=== PATIENT | male | born 1985 | race Caucasian/White ===

== ENCOUNTER 2019-11-04 16:10 | Observation (INO) ==
[2019-11-04] MEDS ORDERED: VANCOMYCIN HCL 2,000 MG in SODIUM CHLORIDE 0.9% 500 ML IV STA (16:57)
[2019-11-04] MEDS ORDERED: VANCOMYCIN CONSULT ACTIVE PRN ×2 (17:02→21:23)
[2019-11-04 17:36] LABS: Basophils # (auto) 0.04 K/uL (0-0.2); Basophils % (auto) 0.4 %; Eosinophils # (auto) 0.13 K/uL (0-0.5); Eosinophils % (auto) 1.2 %; Hematocrit (blood only) 36.5 % (42-52); Hemoglobin 12.1 g/dL (14.0-18.0); Immature Granulocytes # (auto) 0.02 K/uL (0.00-0.02); Immature Granulocytes % (auto) 0.2 %; Lymphocytes # (auto) 1.95 K/uL (1.2-3.4); Lymphocytes % (auto) 17.6 %; Mean Corpuscular Hemoglobin 29.2 pg (25-34); Mean Corpuscular Hgb Conc 33.2 g/dL (32-36); Mean Corpuscular Volume 88.2 fL (80-100); Monocytes # (auto) 0.55 K/uL (0.11-0.59); Neutrophils # (auto) 8.37 K/uL (1.4-6.5); Neutrophils % (auto) 75.6 %; Platelet Count 361 K/uL (130-400); RDW Coefficient of Variation 13.6 % (11.5-14.5); RDW Standard Deviation 43.5 fL (36.4-46.3); Red Blood Count 4.14 M/uL (4.7-6.1); White Blood Count 11.06 K/uL (4.8-10.8)
[2019-11-04 17:52] LABS: INR 1.1 (0.9-1.1); Partial Thromboplastin Ratio 1.1; Partial Thromboplastin Time 29.5 Seconds (21.0-31.0); Prothrombin Time 11.5 Seconds (9.0-12.0)
[2019-11-04 17:53] LABS: Alanine Aminotransferase 15 U/L (12-78); Albumin Level 3.8 gm/dl (3.4-5.0); Aspartate Aminotransferase 16 U/L (15-37); BUN Creatinine Ratio 13.7 (10-20); Blood Urea Nitrogen 13 mg/dl (7-18); Calcium 9.1 mg/dl (8.5-10.1); Carbon Dioxide 27 mmol/L (21-32); Chloride 106 mmol/L (98-107); Est GFR (African American) 122.3; Est GFR (Non-African American) 105.5; Glucose 96 mg/dl (70-99); Sodium 139 mmol/L (136-145)
--- NOTE | 2019-11-04 17:54 | XRay Report ---
XR chest 1V portable HISTORY: SEPSIS COMPARISON: Chest 10/05/2019. FINDINGS: Cardiac silhouette is normal in size. Bilateral hilar prominence remains unchanged. Stable blunting of the left lateral costophrenic sulcus. This could be chronic or due to a trace left pleura l effusion. No new focal lung consolidations to suggest pneumonia. No evidence for pulmonary edema. S table diffuse interstitial thickening. This may be technical. IMPRESSION: Stable blunting of the left lateral costophrenic sulcus. This could be chronic or due to a trace left pleural effusion. Otherwise, no acute process within the chest. ACT 112: Negative or not required by law. Electronically signed by: Bam Hannah M.D. 11/04/2019 5:53 PM
[2019-11-04 17:58] LABS: Albumin Globulin Ratio 0.7 (0.9-2); Alkaline Phosphatase 90 U/L (45-117); Bilirubin,Total 0.6 mg/dl (0.2-1); Globulin 5.1 gm/dl (2.5-4.0); Total Protein 8.9 gm/dl (6.4-8.2); Troponin I < 0.015 ng/ml (0-0.045)
[2019-11-04] MEDS ORDERED: cefTRIAXone SODIUM 2,000 MG/70 ML BAG IV STA (18:03)
--- NOTE | 2019-11-04 18:38 | Emergency Department Note ---
History of Present Illness General Chief complaint: Abnormal Labs/Diagnostic Testing Stated complaint: ABNORMAL LABS Time Seen by Provider: 11/04/19 16:45 Source: patient Mode of arrival: ambulatory Limitations: no limitations History of Present Illness Provider complaint: Endocarditis This is a 34-year-old male who presents to the ED with a chief complaint of endocarditis. The patient states that he was at [facility] in [place] where he was found to have endocarditis. The patient states that he also had vegetations on his heart valves and septic emboli to his brain. He was placed on antibiotics including Zosyn and vancomycin at that facility and decided to sign himself out AGAINST MEDICAL ADVICE to come here to be admitted. He checked out of the hospital on the and he arrived here today, the . The patient states that his symptoms were found because he had some seizure-like activity about a month ago. He also states that in either August or September he had elevated cardiac enzymes. The patient does report a history of IV drug abuse but has been clean for 2 or 3 years. He does have poor dentition. Patient has no specific complaints at this time. Past Med/Surg History Medical History No pertinent past medical history Surgical History No pertinent past surgical history Social History Smoking Status: Current every day smoker Hx Alcohol Use: Yes Hx Substance Use: Yes (Prior IV drug abuser.) Preferred Language: Samoan Communication Ability: Effective Feels Safe at Home: Yes Review of Systems A total of 10 systems reviewed and were otherwise negative Physical Exam Vital Signs Vital Signs - 24 hr 11/04/19 16:36 11/04/19 17:33 11/04/19 17:48 Temperature 37.3 C Temperature Source Oral Pulse Rate 89 89 80 Pulse Rate from SpO2 Sensor 88 81 Respiratory Rate 18 12 16 Blood Pressure 121/74 118/69 Blood Pressure Mean 89 72 Pulse Oximetry 98 96 97 Oxygen Delivery Method Room Air Sepsis Recent Fever Within 48 Hours No Sepsis New/Unexplained Change in Mental Status No Sepsis Action Taken by Nursing No Action Required 11/04/19 18:00 11/04/19 18:01 Temperature Temperature Source Pulse Rate 90 84 Pulse Rate from SpO2 Sensor 89 84 Respiratory Rate 15 21 Blood Pressure 120/66 Blood Pressure Mean 83 Pulse Oximetry 95 97 Oxygen Delivery Method Sepsis Recent Fever Within 48 Hours Sepsis New/Unexplained Change in Mental Status Sepsis Action Taken by Nursing CONSTITUTIONAL/VITAL SIGNS: Reviewed / noted above. GENERAL: Non-toxic in appearance. INTEGUMENTARY: Warm, dry, and Wilkinson. HEAD: Normocephalic. EYES: without scleral icterus or trauma. ENT/OROPHARYNX: clear and moist. LYMPHADENOPATHY/NECK: Is supple without lymphadenopathy or meningismus. RESPIRATORY: Lungs clear and equal. CARDIOVASCULAR: Regular rate and rhythm. Holosystolic ejection murmur. GI/ABDOMEN: Soft and nontender. No organomegaly or pulsatile mass. No rebound or guarding. Normal bowel sounds. EXTREMITIES: Warm and well perfused. BACK: No CVA tenderness. NEUROLOGICAL: Intact without focal deficits. PSYCHIATRIC: normal affect. MUSCULOSKELETAL: Normally developed with good muscle tone. TRIAGE NURSING DOCUMENTATION REVIEWED. Course Administered Medications Vancomycin HCl 2,000 mg/ (Sodium Chloride) 540 mls @ 200 mls/hr IV NOW STA Stop: 11/04/19 19:38 Last Infusion: 11/04/19 18:11 Dose: 0 mls/hr Documented by: [id number] Admin: 11/04/19 17:26 Dose: 200 mls/hr Documented by: [id number] Discontinued Medications Ceftriaxone Sodium (Rocephin) 2,000 mg in 70 mls @ 140 mls/hr IV NOW STA Stop: 11/04/19 18:32 Last Admin: 11/04/19 18:17 Dose: 140 mls/hr Documented by: [id number] Medical Decision Making Differential Diagnosis Differential includes acute coronary syndrome, myocardial infarction, CVA, TIA, anemia, infection, pneumonia, UTI, pyelonephritis, poor nutrition, dehydration, electrolyte disturbance,hypoglycemia. Medical Records Attestation: I reviewed the patient's medical records. Home Medications Current Medication List: was personally reviewed by me Laboratory Data Attestation: I reviewed the patient's lab results. Result diagrams: 11/04/19 17:18 11/04/19 17:18 Lab Results 11/04/19 11/04/19 11/04/19 Range/Units 17:18 17:18 17:18 WBC 11.06 H (4.8-10.8) K/uL RBC 4.14 L (4.7-6.1) M/uL Hgb 12.1 L (14.0-18.0) g/dL Hct 36.5 L (42-52) % MCV 88.2 (80-100) fL MCH 29.2 (25-34) pg MCHC 33.2 (32-36) g/dL RDW Std Deviation 43.5 (36.4-46.3) fL RDW Coeff of Keren 13.6 (11.5-14.5) % Plt Count 361 (130-400) K/uL MPV 10.0 (7.4-10.4) fL Immature Gran % (Auto) 0.2 % Neut % (Auto) 75.6 % Lymph % (Auto) 17.6 % Daviess % (Auto) 5.0 % Eos % (Auto) 1.2 % Baso % (Auto) 0.4 % Neut # (Auto) 8.37 H (1.4-6.5) K/uL Lymph # (Auto) 1.95 (1.2-3.4) K/uL Daviess # (Auto) 0.55 (0.11-0.59) K/uL Eos # (Auto) 0.13 (0-0.5) K/uL Baso # (Auto) 0.04 (0-0.2) K/uL Immature Gran # (Auto) 0.02 (0.00-0.02) K/uL PT 11.5 (9.0-12.0) Seconds INR 1.1 (0.9-1.1) APTT 29.5 (21.0-31.0) Seconds PTT Ratio 1.1 Sodium 139 (136-145) mmol/L Potassium 4.0 (3.5-5.1) mmol/L Chloride 106 (98-107) mmol/L Carbon Dioxide 27 (21-32) mmol/L Anion Gap 6.0 (3-11) BUN 13 (7-18) mg/dl Creatinine 0.95 (0.6-1.4) mg/dl Est Cr Clr Drug Dosing 108.0 ml/min Est GFR ( Amer) 122.3 Est GFR (Non-Af Amer) 105.5 BUN/Creatinine Ratio 13.7 (10-20) Glucose 96 (70-99) mg/dl Lactate (0.4-2.0) mmol/L Calcium 9.1 (8.5-10.1) mg/dl Magnesium 2.0 (1.8-2.4) mg/dl Total Bilirubin 0.6 (0.2-1) mg/dl AST 16 (15-37) U/L ALT 15 (12-78) U/L Alkaline Phosphatase 90 (45-117) U/L Troponin I < 0.015 (0-0.045) ng/ml Total Protein 8.9 H (6.4-8.2) gm/dl Albumin 3.8 (3.4-5.0) gm/dl Globulin 5.1 H (2.5-4.0) gm/dl Albumin/Globulin Ratio 0.7 L (0.9-2) 11/04/19 Range/Units 17:18 WBC (4.8-10.8) K/uL RBC (4.7-6.1) M/uL Hgb (14.0-18.0) g/dL Hct (42-52) % MCV (80-100) fL MCH (25-34) pg MCHC (32-36) g/dL RDW Std Deviation (36.4-46.3) fL RDW Coeff of Keren (11.5-14.5) % Plt Count (130-400) K/uL MPV (7.4-10.4) fL Immature Gran % (Auto) % Neut % (Auto) % Lymph % (Auto) % Daviess % (Auto) % Eos % (Auto) % Baso % (Auto) % Neut # (Auto) (1.4-6.5) K/uL Lymph # (Auto) (1.2-3.4) K/uL Daviess # (Auto) (0.11-0.59) K/uL Eos # (Auto) (0-0.5) K/uL Baso # (Auto) (0-0.2) K/uL Immature Gran # (Auto) (0.00-0.02) K/uL PT (9.0-12.0) Seconds INR (0.9-1.1) APTT (21.0-31.0) Seconds PTT Ratio Sodium (136-145) mmol/L Potassium (3.5-5.1) mmol/L Chloride (98-107) mmol/L Carbon Dioxide (21-32) mmol/L Anion Gap (3-11) BUN (7-18) mg/dl Creatinine (0.6-1.4) mg/dl Est Cr Clr Drug Dosing ml/min Est GFR ( Amer) Est GFR (Non-Af Amer) BUN/Creatinine Ratio (10-20) Glucose (70-99) mg/dl Lactate 1.2 (0.4-2.0) mmol/L Calcium (8.5-10.1) mg/dl Magnesium (1.8-2.4) mg/dl Total Bilirubin (0.2-1) mg/dl AST (15-37) U/L ALT (12-78) U/L Alkaline Phosphatase (45-117) U/L Troponin I (0-0.045) ng/ml Total Protein (6.4-8.2) gm/dl Albumin (3.4-5.0) gm/dl Globulin (2.5-4.0) gm/dl Albumin/Globulin Ratio (0.9-2) Imaging Data Radiologist's Impression: Chest x-ray: IMPRESSION: Stable blunting of the left lateral costophrenic sulcus. This could be chronic or due to a trace left pleural effusion. Otherwise, no acute process within the chest. ECG Data Attestation: I personally reviewed and interpreted this ECG as follows: Indication: + other (Heart murmur) Rate (beats per minute): 87 Rhythm: + normal sinus ECG Intervals/blocks: + Normal QT-c ECG ST segments: no ST elevation ECG Findings: no PVCs MDM Narrative Patient presents to the emergency department after signing out of [facility] in [place] with endocarditis. He states that he came to be admitted to the hospital here for IV antibiotics. Further details listed above. He did come with some paperwork that was sent by his PCP that shows that he has vegetations in the valves of the heart and also the patient has septic emboli to his brain. The patient CBC and chemistry panel here was unremarkable. His troponin was negative. Chest x-ray reveals a left pleural effusion but otherwise no acute disease. EKG shows normal sinus rhythm. The patient was started on IV vancomycin and IV Rocephin he was seen by the hospitalist for further evaluation and care. Impression & Plan Endocarditis, Cerebral septic emboli Discharge Plan Visit Data Chief Complaint: Abnormal Labs/Diagnostic Testing Stated Complaint: ABNORMAL LABS ED Provider: El Starkey Discharge Problem: Endocarditis, Cerebral septic emboli Patient Disposition: Being Evaluated by Hospitalist Forms Stand Alone Forms: [facility] Referrals Referrals: Familia Gaston DO [Primary Care Provider] -
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
[2019-11-04] MEDS ORDERED: ACETAMINOPHEN 325 MG TAB PO PRN (21:23)
[2019-11-04] MEDS ORDERED: ONDANSETRON INJ 2 MG/ML 2 ML VIAL IV PRN (21:23)
[2019-11-04] MEDS ORDERED: POLYETHYLENE (MIRALAX) 17 GM PACK PO PRN (21:23)
[2019-11-04] MEDS: levETIRAcetam 500 MG in 0.9 % SODIUM CHLORIDE 100 ML IV SCH (22:09)
--- NOTE | 2019-11-04 22:37 | Billing Data ---
Date of Service November 04, 2019 Coding Level of Care Code 77367 Initial Inpt Care Lvl 3
[2019-11-04] MEDS: buprenorphine HCL 2 MG SUBL SL SCH (23:27)
[2019-11-04] MEDS: ENOXAPARIN INJ 40 MG/0.4 ML SYR SQ SCH (23:28)
[2019-11-05] MEDS: VANCOMYCIN HCL 1,250 MG in SODIUM CHLORIDE 0.9% 250 ML IV SCH ×2 (04:30→12:15)
[2019-11-05] MEDS: cefTRIAXone SODIUM 2,000 MG in DEXTROSE 5% 50 ML IV SCH ×2 (06:09→18:04)
--- NOTE | 2019-11-05 08:23 | Pharmacy Report ---
Pharmacy Abx Initial Consult - Date of Service November 05, 2019 - Pharmacy Dosing Scope Date of Consult: 11/04/19 Consultation requested by: Dr. Agrawal Pharmacy is consulted to initiate Vancomycin IV dosing therapy, order appropriate labs and adjust drug dose/frequency. - Subjective The patient is a 34 year old M admitted on 11/04/19 20:02. - Objective Height: 5 ft 9 in Weight: 68.9 kg Vital Signs (Past 12hrs): Vital Signs Temp Pulse Pulse Resp BP BP BP 11/05/19 07:22 36.5 C 66 16 98/55 L 11/05/19 03:50 36.6 C 69 16 91/51 L 11/04/19 23:59 89 11/04/19 23:06 36.6 C 90 16 112/65 11/04/19 22:39 36.8 C 82 20 104/60 11/04/19 21:37 87 11/04/19 20:31 84 19 11/04/19 20:30 90 12 111/63 Pulse Ox 11/05/19 07:22 95 11/05/19 03:50 95 11/04/19 23:59 11/04/19 23:06 97 11/04/19 22:39 97 11/04/19 21:37 11/04/19 20:31 97 11/04/19 20:30 97 Lab Results (24hrs): Laboratory Tests (24 Hours) 11/05/19 11/04/19 11/04/19 01:46 17:20 17:18 WBC Neut # (Auto) ESR 67 H Creatinine Est Cr Clr Drug Dosing C-Reactive Protein 1.13 H Random Vancomycin 14.3 11/04/19 11/04/19 17:18 17:18 WBC 11.06 H Neut # (Auto) 8.37 H ESR Creatinine 0.95 Est Cr Clr Drug Dosing 108.0 C-Reactive Protein Random Vancomycin Micro Results: 11/04/19 17:20 Aerobic Blood Culture - Pending Blood Anaerobic Blood Culture - Pending 11/04/19 17:18 Aerobic Blood Culture - Pending Blood Anaerobic Blood Culture - Pending Patient's blood culture results faxed from [facility] showing strep Mitis sensitive to vancomycin, intermediate to penicillin, sensitive to ceftriaxone and sensitive to levofloxacin. - Risk Factors for Resistance * IV Drug user * Antimicrobial use within the last 90 days Vanco/CTX ~[address] [facility] for endocarditis (left AMA) - Assessment & Plan Assessment 34 year old M initiated on IV Vanco + CTX for endocarditis. ID consulted - [email or web address] clayton for their recs re: de-escalation * Patient's blood culture results faxed from [facility] showing strep Mitis sensitive to vancomycin, intermediate to penicillin, sensitive to ceftriaxone and sensitive to levofloxacin. Plan VANCOMYCIN + CTX for treatment of endocarditis Vancomycin IV * Patient meets criteria for vancomycin AUC dosing nomogram * AUC/CARLITO is the preferred PK/PD target for vancomycin * Target AUC/CARLITO = 400-600 * AUC guided dosing is effective and associated with decreased risk of nephrotoxicity * Will check a trough level to ensure adequate dosing with severe infection * 11/06/19 @ 0300 Ceftriaxone * NOT a pharmacy consult - but dosing is appropriate for endocarditis * Continue CTX 2,000mg IV Q12hrs Pharmacy will continue to follow and will adjust dose/frequency as necessary. Thank you.
[2019-11-05] MEDS: buprenorphine HCL 2 MG SUBL SL SCH ×2 (09:01→21:06)
[2019-11-05] MEDS: levETIRAcetam 500 MG in 0.9 % SODIUM CHLORIDE 100 ML IV SCH ×2 (09:33→21:06)
--- NOTE | 2019-11-05 10:24 | Neurology Consultation ---
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 Patient had presented with a probable seizure 2-1/2 months ago. He is neurologically intact and currently receiving antimicrobial therapy. He is currently refusing additional neurological testing including an up-to-date brain MRI and EEG. At this point, I would like him to continue with Keppra 500 mg twice daily. This medication can be changed to p.o. at time of discharge. Would plan on obtaining a follow-up outpatient brain MRI in 1 month to ensure improvement/resolution. EEG could be completed as an outpatient. History of Present Illness Reason for Consultation: Infective endocarditis, seizure, brain emboli Requesting Physician: Jonathan Agrawal MD Attending Physician: Autumn Craig MD History of Present Illness The patient is a 34-year-old male who presented to the emergency department yesterday for management of infective endocarditis. He had recently left [facility] so he could be treated closer to home. His present illness came to medical attention after a seizure that occurred approximately 2-1/2 months ago characterized by posturing of the right upper limb and head and unresponsiveness lasting less than a minute. His primary care physician ordered a brain MRI which was completed at [facility] on October 25, 2019 and revealed an enhancing lesion within the right temporal right temporoparietal region with associated vasogenic edema. There were several additional foci of acute ischemic change within the left parietal convexity. The imaging findings were felt to be potentially consistent with neoplasm at that time which is why he was referred to [facility] for neurosurgical care. However, he was ultimately diagnosed with infective endocarditis with vegetations on the mitral valve. The above imaging findings are felt to be most likely consistent with septic emboli in the context of endocarditis. Past medical history is notable for intravenous drug abuse as well as very poor dentition. He is currently receiving antimicrobial therapy. Consultations with cardiology and infectious diseases are pending. He underwent a repeat echocardiogram this morning. He has not had any further seizure-like episodes since the event that occurred 2-1/2 months ago. He denies headache, focal weakness, or other neurological symptoms at this point in time. He is currently refusing a repeat brain MRI or EEG. He indicates that he just wants to get his endocarditis treated with antibiotics and is not interested in additional neurological testing at this time. I had discussed his case with Dr. Agrawal last night and recommended starting Keppra for seizure prophylaxis in light of his history. Allergies Allergy/AdvReac Type Severity Reaction Status Date / Time naloxone Allergy Severe Hives,dizziness Verified 11/04/19 19:04 and throat swelling Home Medications Home Medications Medication Instructions Recorded Confirmed Type buprenorphine HCl [Subutex] 4 mg SUBLINGUAL BID 11/04/19 11/04/19 History Patient History Medical History No pertinent past medical history Surgical History No pertinent past surgical history Social History Smoking Status: Current every day smoker Cigarettes Per Day: 20; Do You Dip or Chew Tobacco: No; Tobacco Cessation Education Requested by Patient: No Hx Alcohol Use: No Hx Substance Use: Yes Last Used Substance: Unknown Preferred Language: Croatian Communication Ability: Effective Filter Operator Required: No Beliefs That Will Affect Care: None Current Living Situation: Spouse Other Information That Helps Us Care for You: No Feels Safe at Home: Yes Safety Concerns: Feels Safe At This Time Review of Systems Constitutional: + chills and + sweats; no fever Eyes: no blind spots and no diplopia Ear, Nose, Mouth, Throat: no hearing loss Respiratory: no cough and no dyspnea Cardiovascular: no chest pain and no palpitations Gastrointestinal: no nausea and no vomiting Genitourinary: no dysuria Musculoskeletal: no back pain and no neck pain Integumentary: no rash and no lesions Neurologic: as per Subjective / HPI and + seizure-like activity; no gait abnormality, no localized weakness, no loss of sensation, no syncope, no headache(s), no confusion and no memory loss Psychiatric: no depression and no anxiety Hematologic / Lymphatic: no easy bleeding and no easy bruising Exam (Neuro) Constitutional: well developed and well nourished; no acute distress Eyes: normal visual mcdonough by confrontation, PERRL, normal accommodation and EOM intact bilaterally; no fundoscopic abnormality, no nystagmus and no papilledema Cardiovascular: Vessels: normal carotid upstroke; no carotid bruit Neurologic: Oriented to:: Person, Place and Time Memory: Short Term Intact and Remote Intact Attention: Span Intact and Concentration Intact Language: Naming Objects and Repeating Phrases Speech Fluency: negative Dysarthria Speech Aphasia: negative Aphasia Fund of Knowledge: Current Events, Past History and Vocabulary Cranial Nerves: Normal II (Visual mcdonough full to confrontation, visual acuity normal), III, IV, (Pupils equal round reactive to light and accommodation, eye movements normal), V (Facial sensation intact), VII (There is no facial droop or weakness), VIII (Hearing intact), IX, X (Palate elevates to midline), XI (Shoulder shrug intact) and XII (Tongue protrudes to midline) Motor Strength: Normal Lower Extremities and Normal Upper Extremities; negative Pronator Drift Motor Tone: Normal Lower Extremi ties and Normal Upper Extremities Muscle Bulk/Involuntary Movements: No Involuntary Movements; negative Muscle Atrophy Sensation: Light Touch Intact, Pain/Temperature Intact, Vibration Intact and Proprioception Intact Coordination: Normal; negative Limited Balance, Dysdiadochokinesia, Finger-Nose Abnormal and Heel-Batista Abnormal Deep Tendon Reflexes: Rt Triceps: 2+, Lt Triceps: 2+, Rt Biceps: 2+, Lt Biceps: 2+, Rt Brachioradialis: 2+, Lt Brachioradialis: 2+, Rt Patellar: 2+, Lt Patellar: 2+, Rt Ankle: 2+ and Lt Ankle: 2+ Special Tests: negative Babinski Present Gait: Normal Station and Gait Results & Data ([facility]) Vital Signs (Past 12 Hours) Vital Signs Temp Pulse Pulse Resp BP BP Pulse Ox 11/05/19 07:22 36.5 C 66 16 98/55 L 95 11/05/19 03:50 36.6 C 69 16 91/51 L 95 11/04/19 23:59 89 11/04/19 23:06 36.6 C 90 16 112/65 97 11/04/19 22:39 36.8 C 82 20 104/60 97 Laboratory Results WBC 11.06, hemoglobin 12.1, hematocrit 36.5, platelet count 361, ESR 67, sodium 139, potassium 4.0, BUN 13, creatinine 0.95, glucose 96, magnesium 2.0, AST 16, ALT 15, troponin less than 0.015, CRP 1.13 Diagnostic Findings MRI of the brain completed October 25, 2019 reveals bilateral temporoparietal foci of increased signal as well as postcontrast linear enhancement. There is moderate vasogenic edema of the right temporoparietal enhancing lesion. There are several additional acute subacute/acute foci of ischemic change within the left parietal convexity. I reviewed the images as well as the radiologist interpretation of this test. Findings most likely consistent with septic emboli in the context of infective endocarditis. See HPI for further discussion regarding initial radiology imaging interpretation. An electrocardiogram reveals a normal sinus rhythm, 87 bpm Coding Level of Care Code 31349 Initial In Care l 3 Diagnoses Cerebral septic emboli I76; I66.9 Endocarditis I33.0 Chronicity: subacute Endocarditis type: infective Infective endocarditis organism: bacterial Seizure R56.9 (1) Endocarditis Chronicity: subacute Endocarditis type: infective Infective endocarditis organism: bacterial Qualified Code(s): I33.0 - Acute and subacute infective endocarditis
--- NOTE | 2019-11-05 12:06 | XCELERA ---
[id number] \\[id number]
--- NOTE | 2019-11-05 13:10 | Cardiology Consultation ---
Date of Consultation November 05, 2019 Assessment & Plan (1) Severe mitral regurgitation: (2) Endocarditis of [place] valve: (3) Pulmonary hypertension: ASSESSMENT/PLAN: 1. severe mitral regurgitation: He has severe mitral regurgitation in the setting of mitral valve endocarditis. Continue antibiotics based on sensitivities noted at [facility]. He has severe pulmonary hypertension. Fortunately, he remains asymptomatic thus far. Recommend surgical intervention with CT surgery. He was made aware that CT surgery is not available at this facility. He and his agreed to be transferred to [facility], where he recently signed out against medical advice. A call was made to there transfer center and CT surgery has recommended hospitalist service. This was discussed with Dr. Craig who has agreed to further discuss with [facility] hospitalist service for transfer. Would recommend expedited transfer. 2. Mitral valve endocarditis: Antibiotics as per primary service. Infectious Disease consultation is pending. 3. Pulmonary hypertension: Asymptomatic. Likely secondary to severe mitral regurgitation. Plan as above. 4. Disposition: He and his were notified that he is quite ill in regards to his severe mitral regurgitation. Fortunately, he remains asymptomatic. The importance of undergoing CT surgery evaluation was stressed and recommended that this be done soon with hospital hospital transfer. Dr. Craig of the hospitalist service is assisting in transferring him to [facility]. Highly complex medical issues. Thank you for allowing me to participate in the care of your patient. Please call for any other questions or concerns. Sincerely, Skyler Fletcher M.D. History of Present Illness Reason for Consultation: MV endocarditis with severe mitral regurgitation Requesting Physician: Tanja Attending Physician: Autumn Craig MD History of Present Illness Mr. Ackerman is a 34-year-old gentleman with recently diagnosed mitral valve endocarditis with severe mitral regurgitation at [facility] in October of 2019. Last week, he was admitted to [facility] in [place] and was diagnosed with mitral valve endocarditis with severe mitral regurgitation. He was noted to have a new brain mass on MRI, thought to be possible cardioembolic source as per Neurosurgery service. He reportedly had elevated inflammatory markers and blood cultures grew strep mitis, sensitive to vancomycin, ceftriaxone, and levofloxacin. Cardiology was consulted while there and given severe MR on echo, had notified CT surgery according to their consultation. Unfortunately, he had signed out against medical advice prior to being seen by the attending driller and reamer. According to records, he had a troponin of 0.073 at [facility] on 10/05/2019 while being seen in the emergency department, but once again signed out against medical advice at that time. He describes having a seizure approximately 1.5 months ago. He has not been febrile here but believes that he has had possible fever over the past month on occasion. He reports taking doxycycline recently and after [facility] admission, was sent home on amoxicillin twice daily for a few days.He describes Osler's nodes on his fingers but states that they have resolved. He denies chest pain, shortness of breath, syncope, near-syncope, palpitations, edema, or bleeding. He denies any recent fever or shaking chills. He states that he knows that he has severe mitral regurgitation, stating that he was able to visualize his echo images earlier this morning. His is present at the bedside. Review of systems: As above. Review of systems otherwise negative/ unremarkable. Family history: Grandfather had [place] x4 and strokes. Social history: He smokes 1+ pack per day. Rare alcohol. Smokes marijuana. States that he was an avid IV drug abuser in the past but has been clean for most of the past 3 years, using only on rare occasion. He has an 8-year-old son. He has 2 adult step sons. He is unemployed. His is at the bedside. Allergies Allergy/AdvReac Type Severity Reaction Status Date / Time naloxone Allergy Severe Hives,dizziness Verified 11/04/19 19:04 and throat swelling Home Medications Home Medications Medication Instructions Recorded Confirmed Type buprenorphine HCl [Subutex] 4 mg SUBLINGUAL BID 11/04/19 11/04/19 History Patient History Medical History Cerebral septic emboli Endocarditis of [place] valve IV drug user Seizure Severe mitral regurgitation Surgical History No pertinent past surgical history Social History Smoking Status: Current every day smoker Cigarettes Per Day: 20; Do You Dip or Chew Tobacco: No; Tobacco Cessation Education Requested by Patient: No Hx Alcohol Use: No Hx Substance Use: Yes Last Used Substance: Unknown Preferred Language: Yoruba Communication Ability: Effective Associate Product 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 Alert and oriented. HEENT: Anicteric sclera. Neck: No JVD. No bruits. Normal carotid upstrokes bilaterally. Cardiac: PMI was nondisplaced. No ventricular heave. Regular rate and rhythm. Normal S1-S2. 3/6 holosystolic systolic murmur best heard at apex and radiating to the axilla. No rubs, or gallops. Pulmonary: Clear to auscultation bilaterally without wheezes, rales, or rhonchi. Abdomen: Soft, nontender, nondistended, with normoactive bowel sounds. No bruits noted. Extremities: 2+ radial pulses bilaterally. 2+ posterior tibialis pulses bilaterally. No edema or cyanosis. No Osler's nodes, Janeway lesions, or splinter hemorrhages. Psychiatric: Affect appears appropriate. Results & Data ([facility]) Vital Signs (Past 12 Hours) Vital Signs Temp Pulse Pulse Pulse Resp BP Pulse Ox 11/05/19 11:50 36.4 C L 81 18 118/67 98 11/05/19 07:22 36.5 C 66 16 98/55 L 95 11/05/19 07:00 69 11/05/19 03:50 36.6 C 69 16 91/51 L 95 Laboratory Results Laboratory Results - last 24 hr 11/04/19 11/04/19 11/04/19 17:18 17:18 17:18 WBC 11.06 H RBC 4.14 L Hgb 12.1 L Hct 36.5 L MCV 88.2 MCH 29.2 MCHC 33.2 RDW Std Deviation 43.5 RDW Coeff of Keren 13.6 Plt Count 361 MPV 10.0 Immature Gran % (Auto) 0.2 Neut % (Auto) 75.6 Lymph % (Auto) 17.6 [place] % (Auto) 5.0 Eos % (Auto) 1.2 Baso % (Auto) 0.4 Neut # (Auto) 8.37 H Lymph # (Auto) 1.95 [place] # (Auto) 0.55 Eos # (Auto) 0.13 Baso # (Auto) 0.04 Immature Gran # (Auto) 0.02 ESR PT 11.5 INR 1.1 APTT 29.5 PTT Ratio 1.1 Sodium 139 Potassium 4.0 Chloride 106 Carbon Dioxide 27 Anion Gap 6.0 BUN 13 Creatinine 0.95 Est Cr Clr Drug Dosing 108.0 Est GFR ( Amer) 122.3 Est GFR (Non-Af Amer) 105.5 BUN/Creatinine Ratio 13.7 Glucose 96 Lactate Calcium 9.1 Magnesium 2.0 Total Bilirubin 0.6 AST 16 ALT 15 Alkaline Phosphatase 90 Troponin I < 0.015 C-Reactive Protein Total Protein 8.9 H Albumin 3.8 Globulin 5.1 H Albumin/Globulin Ratio 0.7 L Random Vancomycin 11/04/19 11/04/19 11/04/19 17:18 17:18 17:20 WBC RBC Hgb Hct MCV MCH MCHC RDW Std Deviation RDW Coeff of Keren Plt Count MPV Immature Gran % (Auto) Neut % (Auto) Lymph % (Auto) [place] % (Auto) Eos % (Auto) Baso % (Auto) Neut # (Auto) Lymph # (Auto) [place] # (Auto) Eos # (Auto) Baso # (Auto) Immature Gran # (Auto) ESR 67 H PT INR APTT PTT Ratio Sodium Potassium Chloride Carbon Dioxide Anion Gap BUN Creatinine Est Cr Clr Drug Dosing Est GFR ( Amer) Est GFR (Non-Af Amer) BUN/Creatinine Ratio Glucose Lactate 1.2 Calcium Magnesium Total Bilirubin AST ALT Alkaline Phosphatase Troponin I C-Reactive Protein 1.13 H Total Protein Albumin Globulin Albumin/Globulin Ratio Random Vancomycin 11/05/19 01:46 WBC RBC Hgb Hct MCV MCH MCHC RDW Std Deviation RDW Coeff of Keren Plt Count MPV Immature Gran % (Auto) Neut % (Auto) Lymph % (Auto) [place] % (Auto) Eos % (Auto) Baso % (Auto) Neut # (Auto) Lymph # (Auto) [place] # (Auto) Eos # (Auto) Baso # (Auto) Immature Gran # (Auto) ESR PT INR APTT PTT Ratio Sodium Potassium Chloride Carbon Dioxide Anion Gap BUN Creatinine Est Cr Clr Drug Dosing Est GFR ( Amer) Est GFR (Non-Af Amer) BUN/Creatinine Ratio Glucose Lactate Calcium Magnesium Total Bilirubin AST ALT Alkaline Phosphatase Troponin I C-Reactive Protein Total Protein Albumin Globulin Albumin/Globulin Ratio Random Vancomycin 14.3 Diagnostic Findings [place] records reviewed as noted above. Telemetry personally reviewed: Sinus rhythm with PVCs. No arrhythmia. ECG Personally reviewed: ECG 11/05/2019: Normal sinus rhythm. Normal MD interval. Echo 11/05/2019: Normal LV size. EF 65-70%. Normal wall motion. Severe left atrial dilation. Mitral valve vegetation on anterior leaflet approximately 1.1 x 1 cm. Severe MR. Mitral valve leaflets failed to coapt during systole. Severely elevated mitral transvalvular gradient, possibly related to severe MR but cannot exclude underlying stenosis. Mild to moderate TR. RVSP 61. Chest x-ray 11/04/2019: No acute process. Stable blunting of left lateral costophrenic sulcus per Radiology. Medications Administered Current Inpatient Medications Acetaminophen (Acetaminophen 325 Mg Tab) 650 mg PO Q4H PRN PRN Reason: Pain or Fever Stop: 12/04/19 21:22 Buprenorphine HCl (Buprenorphine Hcl 2 Mg Subl) 4 mg SL BID BRYAN Stop: 12/04/19 21:22 Last Admin: 11/05/19 09:01 Dose: 4 mg Documented by: Enoxaparin Sodium (Enoxaparin Inj 40 Mg/0.4 Ml Syr) 40 mg SQ Q24H BRYAN Stop: 12/04/19 21:59 Last Admin: 11/04/19 23:28 Dose: 40 mg Documented by: Ceftriaxone Sodium 2,000 mg/ (Dextrose) 50 mls @ 100 mls/hr IV Q12H [facility]; Protocol Stop: 12/17/19 05:59 Last Infusion: 11/05/19 06:39 Dose: Infused Documented by: Vancomycin HCl 1,250 mg/ (Sodium Chloride) 275 mls @ 125 mls/hr IV Q8H [facility] Stop: 12/17/19 03:59 Last Admin: 11/05/19 12:15 Dose: 125 mls/hr Documented by: Levetiracetam 500 mg/ Sodium (Chloride) 105 mls @ 440 mls/hr IV BID [facility] Stop: 12/04/19 21:22 Last Infusion: 11/05/19 09:50 Dose: Infused Documented by: Miscellaneous Information (Vancomycin Consult Active) 1 ea N/A UD PRN PRN Reason: Consult Stop: 12/04/19 21:22 Ondansetron HCl (Ondansetron Inj 2 Mg/Ml 2 Ml Vial) 4 mg IV Q6H PRN PRN Reason: Nausea Stop: 12/04/19 21:22 Polyethylene Glycol (Polyethylene (Miralax) 17 Gm Pack) 17 gm PO DAILY PRN PRN Reason: Constipation Stop: 12/04/19 21:22 PG Care Time/CCT Total # of Minutes Spent Total Time Spent with Patient: Total time spent is greater than 50% in coordination of care (as documented) at patient's floor/unit and/or counseling patient: Coding Level of Care Code 68905 Initial Inpt Care Lvl 3 Diagnoses Severe mitral regurgitation I34.0 Endocarditis of chickaloon valve I38 Pulmonary hypertension I27.20
--- NOTE | 2019-11-05 17:14 | Surgery Consultation ---
Date of Consultation November 05, 2019 History of Present Illness Attending Physician: Oral Maxillofacial Surgery Exam Present Complaint: I have no pain/swelling/drainage from my infected teeth--My teeth are a mess! History of IV drug use, teeth are in very poor state yet gingival tissue is not that bad , no fistula, no drainage no gingivitis. A detailed oral exam was completed. Finding-Teeth are in a very state of repair and mouth mouth removal is clinical indicated. removal of ALL upper and lower teeth indicated Timing will be coordinated by CT surgery Panorex: No X rays were available as patient will be transferred from [facility] to hospital were CT surgery is available Soft tissue exam: the floor of the mouth, tongue, hard/soft palate, posterior pharyngeal area all with in normal limits, no pathology or abnormal findings noted. Oral Care---Overall oral care is very poor Occlusion---Class I TMJ exam: No pop, clicking, pain, good ROM, No history of TMJ injury or dysfunction Neck is supple, FROM, Able to extend and flex neck w/o difficulty, no masses, no abnormalities, no airway issues, no evidence of sleep apnea. Plan: The CT surgeons upon transfer will need to decide on the timing of the dental extractions and valve surgery. Set up with general anesthesia in hospital due to complexity of the procedure and underlying medical diagnosis. I reviewed the treatment plan and consent with the patient --- extraction of all teeth possibly before the heart surgery but defer to CT surgery. Understanding was expressed. Time was given for questions regarding the surgery, risks and post op care. The procedure will be set up in the near future. Allergies Allergy/AdvReac Type Severity Reaction Status Date / Time naloxone Allergy Severe Hives,dizziness Verified 11/04/19 19:04 and throat swelling Home Medications Home Medications Medication Instructions Recorded Confirmed Type buprenorphine HCl [Subutex] 4 mg SUBLINGUAL BID 11/04/19 11/04/19 History ceftriaxone 2 g IV BID 42 Days #25 ea 11/05/19 Rx levetiracetam [Keppra] 500 mg IV BID #125 ml 11/05/19 Rx Patient History Medical History Cerebral septic emboli Endocarditis of [place] valve IV drug user Seizure Severe mitral regurgitation Surgical History No pertinent past surgical history Social History Smoking Status: Current every day smoker Cigarettes Per Day: 20; Do You Dip or Chew Tobacco: No; Tobacco Cessation Education Requested by Patient: No Hx Alcohol Use: No Hx Substance Use: Yes Last Used Substance: Unknown Preferred Language: Welsh Communication Ability: Effective Insurance Sales Representative Required: No Beliefs That Will Affect Care: None Current Living Situation: Spouse Other Information That Helps Us Care for You: No Feels Safe at Home: Yes Safety Concerns: Feels Safe At This Time Physical Exam Physical Exam: Gen.: No acute distress. Alert and oriented. HEENT: Anicteric sclera. Neck: No JVD. No bruits. Normal carotid upstrokes bilaterally. Cardiac: PMI was nondisplaced. No ventricular heave. Regular rate and rhythm. Normal S1-S2. 3/6 holosystolic systolic murmur best heard at apex and radiating to the axilla. No rubs, or gallops. Pulmonary: Clear to auscultation bilaterally without wheezes, rales, or rhonchi. Abdomen: Soft, nontender, nondistended, with normoactive bowel sounds. No bruits noted. Extremities: 2+ radial pulses bilaterally. 2+ posterior tibialis pulses bilaterally. No edema or cyanosis. No Osler's nodes, Janeway lesions, or splinter hemorrhages. Psychiatric: Affect appears appropriate. Constitutional: well developed and well nourished; no acute distress, not ill appearing and not intoxicated appearing Results & Data ([facility]) Vital Signs (Past 12 Hours) Vital Signs Temp Pulse Pulse Pulse Resp BP Pulse Ox 11/05/19 16:08 36.6 C 74 15 112/65 97 11/05/19 16:00 80 11/05/19 11:50 36.4 C L 81 18 118/67 98 11/05/19 07:22 36.5 C 66 16 98/55 L 95 11/05/19 07:00 69 PG Care Time/CCT Total # of Minutes Spent Total Time Spent with Patient: Total time spent is greater than 50% in coordination of care (as documented) at patient's floor/unit and/or counseling patient: Coding Level of Care Code 72282 Inpt Consult Level 3
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
[2019-11-05] MEDS: ENOXAPARIN INJ 40 MG/0.4 ML SYR SQ SCH (21:06)
--- NOTE | 2019-11-05 22:16 | Electrocardiogram Report ---
Test Reason : Blood Pressure : / mmHG Vent. Rate : 087 BPM Atrial Rate : 087 BPM P-R Int : 138 ms QRS Dur : 094 ms QT Int : 386 ms P-R-T Axes : 052 -42 044 degrees QTc Int : 464 ms Normal sinus rhythm Left axis deviation Abnormal ECG When compared with ECG of 05-OCT-2019 16:12, No significant change was found Confirmed by Mark Fletcher ([id number]) on 11/05/2019 10:16:01 PM Referred By: Familia Gaston Confirmed By:Mark Fletcher
[2019-11-06] MEDS ORDERED: VANCOMYCIN TROUGH ONE (03:30)
== END 2019-11-06 03:34 | disposition short-term general hospital (02) ==
LOC: ED 16:10 → 2S 20:02 → SUATTDRO 20:02 → INTOOBSV 20:02 → 2S 20:57